=== PATIENT | male | born 1950 | race Caucasian/White ===

== ENCOUNTER → 2023-05-07 | Day surgery (SDC) | payer MEDICARE ==
[~2023-05-07] VITALS: Ht 170.2 cm; Wt 94.3 kg
[~2023-05-07] MED LIST: ATOR20TA65 PO; BETA1TAB20 PO; BUPIVACAINE HCL/PF 0.5% (5MG/ML) 10ML ONE; DEXAMETHASONE 4MG/ML 1ML VIAL ONE; DILT-27 PO; FENTANYL CITRATE/PF 50MCG/ML 2ML VIAL ONE; GLIM1TAB PO; GLYCOPYRROLATE 0.2 MG/ML 2ML VIAL ONE; HYDROCODONE/ACETAMINOPHEN 5/325MG TABLET PO NR; LISI-648 PO; MAGN250T29 PO; METF-873 PO; METOCLOPRAMIDE HCL 10MG/2ML VIAL ONE; MULT-1116 PO; NEOSTIGMINE METHYLSULFATE 1MG/ML 10 ML VIAL ONE; ONDANSETRON HCL 4MG/2ML INJ ONE; POTA99CA PO; PROPOFOL 200MG/20ML VIAL IV ONE; ROCURONIUM BROMIDE 10MG/ML VIAL 5ML IV ONE; SKIN ADHESIVE 0.7 GM EA TOP ONE; SODIUM CHLORIDE 0.9% 1,000 ML IV SCH; SUCCINYLCHOLINE CHLORIDE 200MG/10ML IV ONE
[2023-05-07 10:02] VITALS: BP 122/56; PULSE 73; RESP 18
== END | disposition home or self-care (01) ==
LOC: OR 05:51
PROVIDERS: ATTEND Surgery
DX: K40.90 Unilateral inguinal hernia, without obstruction or gangrene, not specified as recurrent (principal); I10 Essential (primary) hypertension; E11.9 Type 2 diabetes mellitus without complications; E78.00 Pure hypercholesterolemia, unspecified; Z79.84 Long term (current) use of oral hypoglycemic drugs; Z79.899 Other long term (current) drug therapy; Z98.890 Other specified postprocedural states
CPT/HCPCS: 82962; 49505; J3010; J3490 ×3; J1100; J2765; J2710; J2405; J2704; J0330; A4217; Z7610 ×19; C1781